=== PATIENT | male | born 1995 | race Asian ===

== ENCOUNTER 2022-05-16 12:09 | Emergency (ER) | payer BC ==
[~2022-05-16] VITALS: Ht 172.7 cm; Wt 65.8 kg
[2022-05-16] MEDS ORDERED: DIAZEPAM 5 MG TABLET PO ONE (13:00)
[2022-05-16] MEDS ORDERED: SULFAMETH/TRIMETH 800/160 MG 1 UDTAB TABLET PO ONE (13:00)
[2022-05-16] MEDS ORDERED: LIDOCAINE 1%-EPI 1:100,000 20 ML VIAL TP ONE (13:00)
[2022-05-16] MEDS ORDERED: LIDOCAINE 1%-EPI 1:100,000 20 ML VIAL ONE (13:13)
[2022-05-16] MEDS ORDERED: DIAZEPAM 5 MG TABLET ONE (13:15)
[2022-05-16] MEDS ORDERED: SULFAMETH/TRIMETH 800/160 MG 1 UDTAB TABLET ONE (13:15)
[2022-05-16] MEDS ORDERED: SULF1TAB48 PO (13:30)
[2022-05-16 13:55] VITALS: BP 128/81
--- NOTE | 2022-05-16 13:55 | NUR ---
Patient discharged to home in stable condition, ambulating. Written and verbal after care instructions given. Patient verbalizes understanding of instruction.
== END 2022-05-16 13:56 | disposition home or self-care (01) ==
LOC: ER 12:18
DX: L05.01 Pilonidal cyst with abscess (principal)
CPT/HCPCS: 10080; 99283; J3490

== ENCOUNTER 2022-05-18 11:46 | Emergency (ER) | payer BC ==
[~2022-05-18] VITALS: Ht 172.7 cm; Wt 65.8 kg
[2022-05-18 11:46] VITALS: BP 140/92
[~2022-05-18 11:46] MED LIST: SULF1TAB48 PO
--- NOTE | 2022-05-18 11:46 | NUR ---
BIBS FOR A WOUND CHECK, DENIES ANY PAIN
--- NOTE | 2022-05-18 13:05 | NUR ---
Patient discharged to home in stable condition. Written and verbal after care instructions given. Patient verbalizes understanding of instruction.
== END 2022-05-18 13:39 | disposition home or self-care (01) ==
LOC: ER 11:49
DX: L05.01 Pilonidal cyst with abscess (principal)

== ENCOUNTER 2022-07-05 00:18 | Emergency (ER) | payer SELFPAY ==
[~2022-07-05] VITALS: Ht 172.7 cm; Wt 65.8 kg
[2022-07-05 01:00] VITALS: BP 139/80
--- NOTE | 2022-07-05 01:00 | NUR ---
BIBSELF C/O Hx OF HEMORRHOIDS AND PAIN AROUND AREA FOR THE PAST FEW DAYS. PATIENT IS AOX4, AMBULATORY. ABLE TO MAKE NEEDS KNOWN. PLACED COMFORTABLY IN BED. VITALS CHECKED
--- NOTE | 2022-07-05 01:03 | NUR ---
SEEN BY DR AMAYA AT BEDSIDE
[2022-07-05] MEDS ORDERED: CLINDAMYCIN HCL 150 MG CAPSULE ONE (01:07)
[2022-07-05] MEDS ORDERED: CLIN300C12 PO (01:13)
--- NOTE | 2022-07-05 01:15 | NUR ---
Patient discharged to home in stable condition. Written and verbal after care instructions given. Patient verbalizes understanding of instruction.
[2022-07-05] MEDS ORDERED: CLINDAMYCIN HCL 150 MG CAPSULE PO ONE (01:30)
[2022-07-05] MEDS ORDERED: IBUPROFEN 600 MG TABLET PO ONE (01:30)
== END 2022-07-05 01:16 | disposition home or self-care (01) ==
LOC: ER 00:23
DX: K61.1 Rectal abscess (principal); Z60.2 Problems related to living alone